=== PATIENT | male | born 1990 | race Two or more races ===

== ENCOUNTER 2025-05-22 11:51 | Emergency (ER) | payer OTHER ==
[~2025-05-22] VITALS: Ht 185.4 cm; Wt 89.4 kg
[2025-05-22] MEDS ORDERED: MAALOX MAXIMUM355 ML PO (14:24)
[2025-05-22] MEDS ORDERED: PEPCID AC20 MG PO (14:24)
[2025-05-22] MEDS ORDERED: MAG HYDROX/ALUMINUM HYD/SIMETH 30 ML BLIST.PACK PO ONE ×2 (14:25→14:30)
[2025-05-22] MEDS ORDERED: FAMOTIDINE/PF 20 MG/2 ML VIAL ONE (14:25)
[2025-05-22] MEDS ORDERED: METOCLOPRAMIDE HCL 10 MG TABLET PO ONE (14:30)
[2025-05-22] MEDS ORDERED: FAMOTIDINE/PF 20 MG/2 ML VIAL IV PUSH ONE (14:30)
== END 2025-05-22 14:40 | disposition home or self-care (01) ==
LOC: ER 11:52
DX: K21.9 Gastro-esophageal reflux disease without esophagitis (principal); Z87.09 Personal history of other diseases of the respiratory system